=== PATIENT | male | born 1950 | race African-American/Black ===

== ENCOUNTER 2020-01-21 13:24 | Outpatient (CLI) | payer MEDICARE, MEDICAID, SELFPAY | END 2020-01-21 13:25 | disposition home or self-care (01) | LOC: ANHAUDIO 13:35 | DX: H90.3 Sensorineural hearing loss, bilateral (principal) | CPT/HCPCS: 92557; 92567 ==

== ENCOUNTER 2020-02-27 13:00 | Outpatient (RCR) | payer MEDICAID, SELFPAY | END 2020-02-27 23:59 | disposition home or self-care (01) | LOC: ANHAUDIO 13:00 | DX: Z46.1 Encounter for fitting and adjustment of hearing aid (principal) | CPT/HCPCS: 99199; V5160; V5261 ==